=== PATIENT | male | born 1940 ===

== ENCOUNTER 2019-06-06 17:51 | Emergency (ER) | payer MEDICARE ==
--- NOTE | 2019-06-06 18:19 | Emergency Department Record ---
History of Present Illness - General Chief Complaint: Confusion Stated Complaint: CANT REMEMBER TODAY Time Seen by Provider: 06/06/19 18:08 Source: Patient Mode of Arrival: Ambulatory Limitations: No limitations - History of Present Illness Initial Comments: 78 yo male presents to ED for evaluation of confusion this afternoon, now resolving per family members. Patient's reports that the patient had a doctors appointment earlier today, went for haircut, and did not recall any of these events. Patient also was confused about his whereabouts while at home this afternoon. Family reports that the patient's symptoms are now resolving, he is able to recall today's events, year, and current place ([facility]). Patient denies any focal deficits on examination, numbness, tingling, or focal weakness symptoms. MD Complaint: Confusion Onset/Timin -: Days(s) Severity: Moderate Consistency: Now resolved Associated Symptoms: Denies other symptoms - Shayna Coma Scale Eye Response: (4) Open spontaneously Motor Response: (6) Obeys commands Verbal Response: (5) Oriented [place] Total: 15 - Related Data Home Medications Medication Instructions Recorded Confirmed Last Taken Aspirin 325 mg PO QHS 06/06/19 06/06/19 06/06/19 Calcium Carbonate [Calcium] 600 mg PO DAILY 06/06/19 06/06/19 06/06/19 Rosuvastatin Calcium [Crestor] 20 mg PO QHS 06/06/19 06/06/19 06/06/19 Allergies Allergy/AdvReac Type Severity Reaction Status Date / Time No Known Drug Allergies Allergy Verified 06/06/19 18:20 Review of Systems Constitutional: Denies: Chills, Fever, Malaise, Night sweats Eyes: Denies: Eye discharge, Eye pain ENT: Denies: Congestion, Ear pain, Epistaxis Respiratory: Denies: Cough, Dyspnea Cardiovascular: Denies: Chest pain, Dyspnea on exertion Endocrine: Denies: Fatigue, Heat or cold intolerance Gastrointestinal: Denies: Abdominal pain, Nausea, Vomiting Genitourinary: Denies: Incontinence, Retention Musculoskeletal: Denies: Arthralgia, Back pain, Gout, Joint swelling Skin: Denies: Bruising, Change in color Neurological: Denies: Abnormal gait, Confusion, Headache, Numbness, Paresthesias, Tingling, Tremors Psychiatric: Denies: Anxiety Hematological/Lymphatic: Denies: Anemia, Blood Clots Physical Exam - General General Appearance: Alert, Oriented x3, Cooperative, No acute distress, Other (Patient is AOx3 currently, NIH stroke scale 0/10) Limitations: No limitations - Head Head exam: Atraumatic, Normocephalic, Normal inspection Head exam detail: negative: Abrasion, Contusion, [place]'s sign, General tenderness, Hematoma, Laceration - Eye Eye exam: Normal appearance. negative: Conjunctival injection, Periorbital swelling, Periorbital tenderness, Scleral icterus - ENT Ear exam: negative: Auricular hematoma, Auricular trauma Nasal Exam: negative: Active bleeding, Discharge, Dried blood, Foreign body Mouth exam: negative: Drooling, Laceration, Muffled voice, Tongue elevation - Neck Neck exam: Normal inspection. negative: Meningismus, Tenderness - Respiratory Respiratory exam: Normal lung sounds bilaterally. negative: Respiratory distress, Rhonchi, Stridor, Wheezes - Cardiovascular Cardiovascular Exam: Regular rate, Normal rhythm, Normal heart sounds - GI/Abdominal GI/Abdominal exam: Soft. negative: Distended, Rebound, Rigid, Tenderness - Rectal Rectal exam: Deferred - exam: Deferred - Extremities Extremities exam: Normal inspection. negative: Pedal edema, Tenderness - Back Back exam: Denies: CVA tenderness (R), CVA tenderness (L) - Neurological Neurological exam: Alert, Normal gait, Oriented X3 - Psychiatric Psychiatric exam: Normal affect, Normal mood - Skin Skin exam: Normal color. negative: Abrasion Type of lesion: negative: abrasion Course - Reevaluation(s) Reevaluation #1: 06/06/19 18:49 EKG: NSR 58 with PVCs, PACs Normal axis, IVCD [address]-T wave changes Reevaluation #2: 06/06/19 19:13 Initial laboratory studies were reviewed and appear grossly unremarkable for an acute process. Reevaluation #3: 06/06/19 20:00 CT Brain: Microvascular disease Atrophy [facility] call contacted for consultation. Reevaluation #4: 06/06/19 20:16 Case was discussed with Dr. Aguilera, does not feel the patient's symptoms are c/w TIA/CVA, more c/w TGA. Dr. Aguilera recommends admission under medicine with MRI for further evaluation. Reevaluation #5: 06/06/19 20:35 Case was discussed with the [facility] attending (Dr. Gutierrez), will accept transfer for MRI and neurology consultation. Patient appears stable for transfer at this time. Medical Decision Making - Lab Data Result diagrams: 06/06/19 18:29 06/06/19 18:29 Disposition Disposition: Transfer Clinical Impression: TGA (transient global amnesia) Disposition: Acute Care Hospital Transfer Transfer To: [facility] Reason For Transfer: TGA, MRI Brain, Neurology consultation Accepting Physician: Brenda Time Discussed w/Accepting Physician: 20:35 Condition: (2) Stable Forms: Patient Portal Access Time of Disposition: 20:35 Quality - Quality Measures Quality Measures: N/A - Blood Pressure Screening Does Patient Have Any of the Following: No Blood Pressure Classification: Pre-Hypertensive BP Reading Systolic Measurement: 166 Diastolic Measurement: 82 Screening for High Blood Pressure: < First Hypertensive BP, F/U Documented > [G8950] First Hypertensive Follow-up Interventions: Referral to alternative/primary care provider.
[2019-06-06 18:44] LABS: ABSOLUTE NEUTROPHIL COUNT 5.61; BASO % 0.2 % (0-6); EOS % 2.2 % (0-6); GRAN % 65.2 % (47-80); HEMATOCRIT 45.7 % (42.0-52.0); HEMOGLOBIN 15.4 gm/dl (14.0-18.0); LYMPH % 26.4 % (16-45); MEAN CORPUSCULAR HEMOGLOBIN 29.3 pg (27-33); MEAN CORPUSCULAR HGB CONC 33.7 g/dl (32-36); MEAN PLATELET VOLUME 10.7 fl (7.4-10.4); PLATELET COUNT 205 K/uL (130-400); RED BLOOD COUNT 5.25 M/uL (4.40-5.70); RED CELL DISTRIBUTION WIDTH 14.5 % (11.5-14.5); WHITE BLOOD COUNT W/O DIFF 8.6 K/uL (4.2-12.2)
[2019-06-06 18:53] LABS: URINE APPEARANCE CLEAR; URINE BILIRUBIN NEGATIVE (NEGATIVE); URINE BLOOD NEGATIVE (NEGATIVE); URINE COLOR YELLOW; URINE GLUCOSE (UA) NEGATIVE (NEGATIVE); URINE KETONE NEGATIVE (NEGATIVE); URINE LEUKOCYTE ESTERASE NEGATIVE (NEGATIVE); URINE NITRITE NEGATIVE (NEGATIVE); URINE PROTEIN NEGATIVE (NEGATIVE); URINE UROBILINOGEN 0.2 E.U./dL (0.20 - 1.00)
[2019-06-06 19:01] LABS: AMPHETAMINE SCREEN URINE NOT DETECTED; BARBITURATE SCREEN URINE NOT DETECTED; BENZODIAZEPINE SCREEN URINE NOT DETECTED; COCAINE SCREEN URINE NOT DETECTED; METHADONE SCREEN URINE NOT DETECTED; METHAMPHETAMINE SCREEN NOT DETECTED; OPIATE SCREEN URINE NOT DETECTED; OXYCODONE SCREEN URINE NOT DETECTED; PHENCYCLIDINE SCREEN URINE NOT DETECTED; PROPOXYPHENE SCREEN URINE NOT DETECTED; THC SCREEN URINE NOT DETECTED; TRICYCLIC ANTIDEPRESSANT SCRN NOT DETECTED
[2019-06-06 19:01] LABS: BLOOD UREA NITROGEN 18 mg/dL (8-23); CREATININE 0.9 mg/dL (0.7-1.2); EST GLOMERULAR FILTRATION RATE > 60 mL/min; GLUCOSE,RANDOM 125 mg/dL (74-109); TOTAL PROTEIN 7.2 g/dL (6.6-8.7)
[2019-06-06 19:03] LABS: ALT/SGPT 16 U/L (<41)
[2019-06-06 19:04] LABS: ALB/GLOB RATIO 1.7 (1.1-1.8); ALBUMIN 4.5 g/dL (4.0-5.0); ALKALINE PHOSPHATASE 84 U/L (40-129); AST/SGOT 24 U/L (10.0-50.0)
--- NOTE | 2019-06-06 19:54 | CT SCAN REPORT ---
EXAMINATION: HEAD WO CONTRAST EXAM DATE: 06/06/2019 7:32 PM TECHNIQUE: Noncontrast axial images were obtained to the brain. INDICATION: confusion COMPARISON: None. ENCOUNTER: Not applicable. HAND DOMINANCE: Unknown FINDINGS: Low-attenuation areas in the periventricular and subcortical white matter. The brain parenchyma is o therwise unremarkable. No loss of mariano-white matter differentiation or sulcal effacement to indicate acute infarction. No evidence of intracranial mass. There is enlargement of the ventricles, sulci, and subarachnoid spaces. No hydrocephalus. There is arterial calcification. No intra-axial or extra-axial fluid collection. No evidence of intracranial hemorrhage. The paranasal sinuses, mastoid air cells, and orbits are unremarkable. The calvarium is intact. IMPRESSION: 1. No CT evidence of intracranial hemorrhage or acute intracranial abnormality. 2. Mild white matter hypoattenuation most commonly represents chronic microvascular ischemic diseas e. 3. Mild cerebral and cerebellar atrophy, consistent with age. Dictated by: DOMINGA BATEMAN MD on 06/06/2019 7:48 PM. .
[2019-06-06 20:57] LABS: THYROID STIMULATING HORMONE 2.25 uIU/mL (0.270-4.20)
== END 2019-06-06 21:58 | disposition short-term general hospital (02) ==
LOC: ER 17:51
DX: G45.4 Transient global amnesia (principal)
CPT/HCPCS: 70450; 80053; 80305; 81003; 82140; 84443; 85025; 93005; 93010; 99285